=== PATIENT | female | born 1950 | race Hispanic/Latino ===

== ENCOUNTER 2016-07-26 13:11 | Observation (INO) | payer BC, MEDICARE ==
[2016-07-26 13:12] VITALS: BMI 21.5
--- NOTE | 2016-07-26 13:51 | ED PDOC ---
HPI: Altered Mental Status Time Seen by Provider: 07/26/16 13:29 Chief Complaint (Nursing): Altered Mental Status Chief Complaint (Provider): confusion History Per: Patient, Family (daughter) Additional Complaint(s): Patient presents to ED for evaluation of episode of confusion that she has earlier today. Patient states she woke up today, had breakfast and walked her dog. When she came home she saw a rat in her toilet and has to dispose of it. She states this is the second rat she has had in toilet in the past week. After she disposed of the rat she sat down on her couch and started to cry after which she went upstairs and told her daughter that she felt confused. Daughter who is at bedside said that patient did not remember walking her dog this morning and also did not remember that her other daughter who is [place] right now. As per daughter at bedside, yesterday patient did remember that her other daughter was away. As per daughter, patient also did not remember incident with rat. This episode occurred 1 hr ago and ambulance was called for patient to come here. Upon arrival patient states she now recalls what happened with the rat and feels less confused. She denies any associated facial or extremity numbness, no vision changes, headache, chest pain, shortness of breath or dyspnea on exertion. She has no history of similar symptoms in the past. Patient also mentions that she has a history of hypothyroidism but has been off of levothyroxine for the past 5 days. Daughter states the patient did not have any slurred speech, facial asymmetry or seizure- like activity at time that episode was occurring. Patient does admit that she has been under a great deal of stress lately and has been anxious. She denies any suicidal or homicidal ideation, denies any alcohol or drug use. NIHSS Stroke Scale - Date/Time Evaluation Performed Date Performed: 07/26/16 Time Performed: 13:50 When Was NIHSS Performed: Baseline - How Severe is the Stroke Level of Consciousness: 0=Alert LOC to Questions: 0=Both comments correct LOC to commands: 0=Obeys both correctly Best Gaze: 0=Normal Visual: 0=No visual loss Facial: 0=Normal Motor Arm - Left: 0=No drift Motor Arm - Right: 0=No drift Motor Leg - Left: 0=No drift Motor Leg - Right: 0=No drift Limb Ataxia: 0=Absent Sensory: 0=Normal Best Language: 0=No aphasia Dysarthia: 0=Normal articulation Extinction & Inattention (Neglect): 0=Normal, no object Score: 0 Past Medical History Reviewed: Historical Data Vital Signs: Last Vital Signs Temp 97.7 F 07/26/16 13:16 Pulse 78 07/26/16 13:16 Resp 19 07/26/16 13:16 BP 116/97 H 07/26/16 13:16 Pulse Ox 98 07/26/16 13:16 - Medical History PMH: Back Problems, Hypothyroidism - Family History Family History: States: No Known Family Hx - Living Arrangements Living Arrangements: With Family - Social History Current smoker - smoking cessation education provided: No Alcohol: None Drugs: Denies - Allergies Allergies/Adverse Reactions: Allergies Allergy/AdvReac Type Severity Reaction Status Date / Time No Known Allergies Allergy Verified 07/26/16 13:16 Review of Systems ROS Statement: Except As Marked, All Systems Reviewed And Found Negative Constitutional: Negative for: Fever, Chills, Weakness Cardiovascular: Negative for: Chest Pain, Palpitations Respiratory: Negative for: Cough Gastrointestinal: Negative for: Nausea, Vomiting Neurological: Positive for: Confusion, Altered Mental Status. Negative for: Weakness, Numbness, Incoordination, Change in Speech, Headache, Dizziness Physical Exam - Reviewed Nursing Documentation Reviewed: Yes Vital Signs Reviewed: Yes - Physical Exam Appears: Positive for: Well, Non-toxic, No Acute Distress Head Exam: Positive for: ATRAUMATIC, NORMAL INSPECTION Skin: Negative for: Rash Eye Exam: Positive for: Normal appearance, EOMI, PERRL. Negative for: Nystagmus Neck: Positive for: Normal, Painless ROM Cardiovascular/Chest: Positive for: Regular Rate, Rhythm Respiratory: Positive for: Normal Breath Sounds Gastrointestinal/Abdominal: Positive for: Normal Exam, Soft. Negative for: Tenderness Extremity: Positive for: Normal ROM. Negative for: Pedal Edema Neurologic/Psych: Positive for: Alert, tile layer helper II-XII (intact), Oriented, Mood/ Affect (appropriate), Gait (stead). Negative for: Motor/Sensory Deficits, Aphasia, Facial Droop - Laboratory Results Result Diagrams: 07/26/16 14:28 07/26/16 14:28 Urine dip results: Negative for: Leukocyte Esterase, Blood, Nitrate, Ketones, Glucose, Bilirubin, Protein - ECG Interpretation Of ECG: NSR 74 bpm, no acute finding, reviewed by PA and ED attending O2 Sat by Pulse Oximetry: 98 Pulse Ox Interpretation: Normal - Other Rad CT head X-Ray: Read By Radiologist X-Ray Interpretation: no acute finding bedside chest X-Ray: Read By Radiologist X-Ray Interpretation: see below Medical Decision Making Medical Decision Makin66 year old with confusion, TIA vs seizure Case was d/w Dr. Rich in detail Plan: CT head CBC CMP Trop TSH IV insertion supervisor lens generating CT is negative. CXR: FINDINGS: LUNGS: Radiopaque nodular densities seen in the peripheral aspect of the right lower lung. Under possible calcified granulomas in the right lung. Multilobular radiopaque density seen in the right hilum. PLEURA: No significant pleural effusion identified, no pneumothorax apparent.Biapical pleural parenchymal thickening noted. CARDIOVASCULAR: Normal. OSSEOUS STRUCTURES: The osseous structures demonstrate degenerative changes. VISUALIZED UPPER ABDOMEN: Normal. OTHER FINDINGS: None. IMPRESSION: Few radiopaque densities in the right lung. Comparison with prior imaging would be helpful. Call placed to [facility], Dr. العراقي, message was left, no call back received. Case was d/w medicine automobile accessories salesperson, Dr. Zacarias who will admit patient. Dr. Zacarias aware of above CXR findings, CT chest ordered. Case was also discussed with neurologist automobile accessories salesperson, Dr. King who will see patient while admitted. He states to order MRI with and without contrast. Patient is aware of and agrees with admission. Disposition - Clinical Impression Clinical Impression: Altered mental status - Patient ED Disposition Is Patient to be Admitted: Yes - Disposition Disposition Time: 17:33 Condition: FAIR - Pt Status Changed To: Hospital Disposition Of: Inpatient - Admit Certification Admit to Inpatient:: After my assessment, the patient will require hospitalization for at least two midnights. This is because of the severity of symptoms shown, intensity of services needed, and/or the medical risk in this patient being treated as an outpatient. - POA Present On Arrival: None Results - Lab Results Lab Results: 07/26/16 14:28 WBC 5.1 RBC 4.74 Hgb 13.8 Hct 42.7 MCV 90.0 MCH 29.2 MCHC 32.4 L RDW 13.7 Plt Count 224 MPV 9.1 Neut % (Auto) 49.0 L Lymph % (Auto) 36.9 [place] % (Auto) 7.5 Eos % (Auto) 5.8 H Baso % (Auto) 0.8 Neut # 2.5 Lymph # 1.9 [place] # 0.4 Eos # 0.3 Baso # 0.0 Sodium 147 Potassium 5.1 H Chloride 107 Carbon Dioxide 27 Anion Gap 18 BUN 18 H Creatinine 0.8 Est GFR ( Amer) > 60 Est GFR (Non-Af Amer) > 60 Random Glucose 102 Calcium 9.6 Total Bilirubin 0.6 AST 41 H ALT 41 Alkaline Phosphatase 91 Troponin I < 0.0120 Total Protein 7.6 Albumin 4.3 Globulin 3.3 Albumin/Globulin Ratio 1.3 TSH 3rd Generation 5.95 H
[2016-07-26 14:47] LABS: BASO % 0.8 % (0.0-2.0); EOS # 0.3 K/uL (0.0-0.7); EOS % 5.8 % (0.0-4.0); HEMATOCRIT 42.7 % (34.0-47.0); LYMPH # 1.9 K/uL (1.0-4.3); LYMPH % 36.9 % (20.0-40.0); MEAN CORPUSCULAR HEMOGLOBIN 29.2 pg (27.0-31.0); MEAN CORPUSCULAR HGB CONC 32.4 g/dL (33.0-37.0); MEAN PLATELET VOLUME 9.1 fl (7.2-11.7); MONO # 0.4 K/uL (0.0-0.8); MONO % 7.5 % (0.0-10.0); NEUT # 2.5 K/uL (1.8-7.0); NRBC % 0.1 % (0.0-0.0); RED CELL DISTRIBUTION WIDTH 13.7 % (11.5-14.5); WHITE BLOOD COUNT 5.1 K/uL (4.8-10.8)
[2016-07-26 14:55] LABS: ALB/GLOB RATIO 1.3 (1.0-2.1); ALKALINE PHOSPHATASE 91 U/L (38-126); ALT/SGPT 41 U/L (9-52); AST/SGOT 41 U/L (14-36); BILIRUBIN,TOTAL 0.6 mg/dl (0.2-1.3); BLOOD UREA NITROGEN 18 mg/dl (7-17); CALCIUM 9.6 mg/dL (8.4-10.2); CARBON DIOXIDE 27 mmol/L (22-30); CHLORIDE 107 mmol/L (98-107); GFR AFRICAN-AMERICAN > 60; GLUCOSE,RANDOM 102 mg/dL (65-105); POTASSIUM 5.1 MMOL/L (3.6-5.0); SODIUM 147 mmol/l (132-148); TOTAL PROTEIN 7.6 G/DL (6.3-8.2)
--- NOTE | 2016-07-26 14:57 | CT ---
PROCEDURE: CT HEAD WITHOUT CONTRAST. HISTORY: altered mental status COMPARISON: None available. TECHNIQUE: Axial computed tomography images were obtained through the head/brain without intravenous contrast. Radiation dose: Total exam DLP = 872.61 mGy-cm. This CT was performed using one or more of the following dose reduction techniques: Automated exposure control, adjustment of the mA and/or KV according to patient size, and/or use of iterative reconstruction technique. FINDINGS: HEMORRHAGE: No intracranial hemorrhage. BRAIN: No mass effect or edema. No CT evidence of acute territorial infarct. No atrophy or chronic microvascular ischemic changes. VENTRICLES: Unremarkable. No hydrocephalus. CALVARIUM: Unremarkable. PARANASAL SINUSES: Unremarkable as visualized. No significant inflammatory changes. MASTOID AIR CELLS: Unremarkable as visualized. No inflammatory changes. OTHER FINDINGS: None. IMPRESSION: No CT evidence of acute intracranial hemorrhage or acute territorial infarct. Acute infarction may be CT occult within first 24 hours. If a focal deficit persists, consider followup CT or MRI for further evaluation.
--- NOTE | 2016-07-26 15:04 | RAD ---
HISTORY: clearance COMPARISON: No prior. FINDINGS: LUNGS: Radiopaque nodular densities seen in the peripheral aspect of the right lower lung. Under possible calcified granulomas in the right lung. Multilobular radiopaque density seen in the right hilum. PLEURA: No significant pleural effusion identified, no pneumothorax apparent.Biapical pleural parenchymal thickening noted. CARDIOVASCULAR: Normal. OSSEOUS STRUCTURES: The osseous structures demonstrate degenerative changes. VISUALIZED UPPER ABDOMEN: Normal. OTHER FINDINGS: None. IMPRESSION: Few radiopaque densities in the right lung. Comparison with prior imaging would be helpful.
[2016-07-26 15:25] LABS: THYROID STIMULATING HORMONE 5.95 mIU/ML (0.46-4.68)
--- NOTE | 2016-07-26 17:19 | CARD ---
APPROVED REPORT EKG Measurement Heart [id number] [place] [id number] <Conclusion> Normal sinus rhythm Normal ECG
[2016-07-26] MEDS ORDERED: Sodium Chloride 0.9% 1,000 ML IV STA (17:33)
--- NOTE | 2016-07-26 20:15 | CP.PCM.HP ---
History of Present Illness - History of Present Illness History of Present Illness: CC:AMS Hisotory of present Illness: A 66yoF with H/O Hypothyroidism presented to ED for evaluation of episode of confusion that she has earlier today. Patient states she woke up today, had breakfast and walked her dog. When she came home she saw a rat in her toilet and has to dispose of it. She states this is the second rat she has had in toilet in the past week. After she disposed of the rat she sat down on her couch and started to cry after which she went upstairs and told her daughter that she felt confused. Daughter who is at bedside said that patient did not remember walking her dog this morning and also did not remember that her other daughter who is [place] right now. As per daughter at bedside, yesterday patient did remember that her other daughter was away. As per daughter, patient also did not remember incident with rat. This episode occurred 1 hr ago and ambulance was called for patient to come here. Upon arrival patient states she now recalls what happened with the rat and feels less confused. She denies any associated facial or extremity numbness, no vision changes, headache , chest pain, shortness of breath or dyspnea on exertion. She has no history of similar symptoms in the past. Patient also mentions that she has a history of hypothyroidism but has been off of Levothyroxine for the past 5 days. Daughter states the patient did not have any slurred speech, facial asymmetry or seizure- like activity at time that episode was occurring. Patient does admit that she has been under a great deal of stress lately and has been anxious. She denies any suicidal or homicidal ideation, denies any alcohol or drug use. Now she states she does not remember about 30minutes of gap as per the daughter at the bed side. Had a fall of 25stairs in the pats and was Hypotensive September of 2015 when she was just observed in the ER for 3hrs and discharged home. Present on Admission - Present on Admission Any Indicators Present on Admission: No History of DVT/PE: No History of Uncontrolled Diabetes: No Urinary Catheter: No Decubitus Ulcer Present: No Review of Systems - Review of Systems All systems: reviewed and no additional remarkable complaints except Past Patient History - Infectious Disease Hx of Infectious Diseases: None - Past Medical History & Family History Past Medical History?: Yes Past Family History: Reviewed and not pertinent - Past Social History Smoking Status: Never Smoked Alcohol: < 2 Drinks/Day Drugs: Denies - CARDIAC Hx Cardiac Disorders: Yes Hx Hypotension: Yes (Fall and Hypotension to SBP to 60, and visited the ER.) - PULMONARY Hx Respiratory Disorders: No - NEUROLOGICAL Hx Neurological Disorder: No - HEENT Hx HEENT Problems: No - RENAL Hx Chronic Kidney Disease: No - ENDOCRINE/METABOLIC Hx Hypothyroidism: Yes - HEMATOLOGICAL/ONCOLOGICAL Hx Blood Disorders: No - INTEGUMENTARY Hx Dermatological Problems: No - MUSCULOSKELETAL/RHEUMATOLOGICAL Hx Musculoskeletal Disorders: Yes Hx Back Pain: Yes - GASTROINTESTINAL Hx Gastrointestinal Disorders: No - GENITOURINARY/GYNECOLOGICAL Hx Genitourinary Disorders: No - PSYCHIATRIC Hx Psychophysiologic Disorder: No Hx Substance Use: No - SURGICAL HISTORY Hx Surgeries: Yes Other/Comment: 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 - ANESTHESIA Hx Anesthesia: Yes Hx Anesthesia Reactions: No Meds Allergies/Adverse Reactions: Allergies Allergy/AdvReac Type Severity Reaction Status Date / Time No Known Allergies Allergy Verified 07/26/16 13:16 Physical Exam - Constitutional Appears: Well, No Acute Distress - Head Exam Head Exam: ATRAUMATIC, NORMAL INSPECTION, NORMOCEPHALIC - Eye Exam Eye Exam: EOMI, Normal appearance, PERRL Pupil Exam: NORMAL ACCOMODATION, PERRL - ENT Exam ENT Exam: Mucous Membranes Moist, Normal Exam - Neck Exam Neck exam: Positive for: Full Rom, Normal Inspection - Respiratory Exam Respiratory Exam: Clear to Auscultation Bilateral, NORMAL BREATHING PATTERN - Cardiovascular Exam Cardiovascular Exam: REGULAR RHYTHM, +S1, +S2 - GI/Abdominal Exam GI & Abdominal Exam: Normal Bowel Sounds, Soft. absent: Tenderness - Extremities Exam Extremities exam: Positive for: full ROM, normal capillary refill, normal inspection. Negative for: tenderness - Back Exam Back exam: FULL ROM, NORMAL INSPECTION - Neurological Exam Neurological exam: Alert, CN II-XII Intact, Normal Gait, Oriented x3, Reflexes Normal - Psychiatric Exam Psychiatric exam: Normal Affect, Normal Mood - Skin Skin Exam: Dry, Intact, Normal Color, Warm Results - Vital Signs Recent Vital Signs: Last Vital Signs Temp 97.7 F 07/26/16 13:16 Pulse 91 H 07/26/16 18:30 Resp 16 07/26/16 18:30 BP 121/68 07/26/16 18:30 Pulse Ox 98 07/26/16 19:04 - Labs Result Diagrams: 07/27/16 06:00 07/27/16 06:00 Labs: Laboratory Results - last 24 hr 07/26/16 07/26/16 17:40 18:45 Potassium 3.9 Urine Opiates Screen Positive H Urine Methadone Screen Negative Ur Barbiturates Screen Negative Ur Phencyclidine Scrn Negative Ur Amphetamines Screen Negative U Benzodiazepines Scrn Negative U Oth Cocaine Metabols Negative U Cannabinoids Screen Negative - EKG Data EKG Interpreted by: Myself EKG shows normal: Sinus rhythm, [place], Intervals, QRS complexes, ST-T waves Rate: Normal - Imaging and Cardiology Chest x-ray Status: Report reviewed by me Additional comment: Few Radioopaque Opacities on the Right Lung. CT scan - head Status: Report reviewed by me Additional comment: without Contrast: No Acute finding Assessment & Plan (1) Altered mental status Assessment and Plan: H/O Fall and Hypotension UDOA- Opiate Positive R/O TIA/CVA Vs Seizure Vs ICSOL. Will do CT Head with Iv contrast (Cannot do MRI due to metals in the [place]) Neurology Consult Echo and Carotid Doppler Telemonitoring Echocardiogram EEG Status: Resolved Priority: Medium (2) Lung nodules Assessment and Plan: Will do CT Chest to characterize the nodules. Pulmonary consult Status: Acute (3) Tendonitis of knee, left Assessment and Plan: after a fall Will continue Pain medication PRN and PT/OT Status: Acute (4) Hypothyroidism Assessment and Plan: Continue Home medication Status: Chronic
[2016-07-27 00:21] LABS: CARCINOEMBRYONIC ANTIGEN 0.6 ng/mL (0-3.0)
[2016-07-27] MEDS: Sodium Chloride 0.45% 1,000 ML IV SCH ×3 (00:35→16:46)
[2016-07-27] MEDS: Levothyroxine 50 MCG TAB PO SCH (06:21)
[2016-07-27 08:08] LABS: BASO % 0.9 % (0.0-2.0); EOS # 0.3 K/uL (0.0-0.7); EOS % 7.7 % (0.0-4.0); LYMPH # 1.8 K/uL (1.0-4.3); LYMPH % 42.3 % (20.0-40.0); MEAN CELL VOLUME 89.3 fl (81.0-99.0); MEAN CORPUSCULAR HEMOGLOBIN 29.9 pg (27.0-31.0); MEAN CORPUSCULAR HGB CONC 33.5 g/dL (33.0-37.0); MONO # 0.4 K/uL (0.0-0.8); MONO % 9.3 % (0.0-10.0); NEUT # 1.7 K/uL (1.8-7.0); NEUT % 39.8 % (50.0-75.0); NRBC % 0.2 % (0.0-0.0); RED CELL DISTRIBUTION WIDTH 13.6 % (11.5-14.5); WHITE BLOOD COUNT 4.2 K/uL (4.8-10.8)
[2016-07-27 08:19] LABS: BLOOD UREA NITROGEN 14 mg/dl (7-17); CALCIUM 8.5 mg/dL (8.4-10.2); CARBON DIOXIDE 24 mmol/L (22-30); CHLORIDE 110 mmol/L (98-107); GFR AFRICAN-AMERICAN > 60; GLUCOSE,RANDOM 79 mg/dL (65-105); POTASSIUM 3.9 MMOL/L (3.6-5.0); SODIUM 143 mmol/l (132-148)
--- NOTE | 2016-07-27 08:39 | CT ---
PROCEDURE: CT Chest without contrast HISTORY: densities seen on CXR COMPARISON: None. TECHNIQUE: Contiguous axial images were obtained through the chest without intravenous contrast enhancement. Sagittal and coronal reconstructions were performed. Radiation dose (DLP): 498.66 mGy-cm. This CT was performed using one or more of the following dose reduction techniques: Automated exposure control, adjustment of the mA and/or KV according to patient size, and/or use of iterative reconstruction technique. FINDINGS: LUNGS: Calcified granuloma along the horizontal fissure. Additional calcified granuloma in the peripheral aspect of the right lower lobe. 5 millimeter nodule in the peripheral aspect of the left lower lobe (image 103, series 3.) 2 millimeter nodule in the peripheral aspect of the left lower lobe (image 19, series 3.) Mild bibasilar atelectatic changes noted. MEDIASTINUM: Unremarkable thoracic aorta. No aneurysm. Normal sized heart. Main pulmonary artery unremarkable. No vascular congestion. Scattered lymph nodes not significantly enlarged in the mediastinum. Calcified lymph nodes in the right hilum. Otherwise hilar lymph nodes are suboptimally evaluated due to lack of intravenous contrast. PLEURA: Biapical pleural parenchymal thickening noted. BONES: No fracture. No destructive lesion. UPPER ABDOMEN: Grossly unremarkable. OTHER FINDINGS: Punctate calcifications in the spleen. Otherwise the upper abdomen is grossly unremarkable. IMPRESSION: Few calcified granulomas in the right lung. Nodule in the left lung. Guidelines by the Fleischner society (radiology 2005; 237:395-400) suggests that in patients with low risk for lung cancer, nodules from 5 mm to 6 mm in diameter should have follow-up in approximately 12 months. In patients with high-risk, such as those were smokers, follow-up is recommended in 6 months. Patients with a known malignancy or risk for metastases should receive 3 month follow-up.
[2016-07-27] MEDS: Enoxaparin 40 mg Syringe SC SCH ×2 (10:15→10:42)
--- NOTE | 2016-07-27 10:41 | CP.PCM.CON ---
History of Present Illness - History of Present Illness History of Present Illness: Ms. Lehman is a 66-year-old woman with a past medical history of previous concussion after head injury, previous accident with jaw implant, symptomatic hypotension and pulmonary nodules who states that yesterday she had a traumatic event (found a rat in her toilet). She describes the event as being so shocking that it resulted in her crying. Afterward, she lost recollection of a specified time period. When her daughter informed her of the events that transpired throughout the day, she continued to repeat the same question after being told the answer on several occasions. She never was able to gain insight on what happened yesterday other than the event in question. However, today, she is lucid able to converse normally, has good recollection and does not have any complaints of speech difficulty, focal weakness, numbness, visual changes or difficulty with ambulation. Review of Systems - Review of Systems All systems: reviewed and no additional remarkable complaints except - Constitutional Constitutional: As Per HPI - EENT Eyes: As Per HPI - Cardiovascular Cardiovascular: As Per HPI - Gastrointestinal Gastrointestinal: As Per HPI - Neurological Neurological: As Per HPI - Psychiatric Psychiatric: As Per HPI Past Patient History - Infectious Disease Hx of Infectious Diseases: None - Past Medical History & Family History Past Medical History?: Yes - Past Social History Smoking Status: Never Smoked - CARDIAC Hx Cardiac Disorders: Yes Hx Hypotension: Yes - PULMONARY Hx Respiratory Disorders: No - NEUROLOGICAL Hx Neurological Disorder: No - HEENT Hx HEENT Problems: No - RENAL Hx Chronic Kidney Disease: No - ENDOCRINE/METABOLIC Hx Endocrine Disorders: Yes Hx Hypothyroidism: Yes - HEMATOLOGICAL/ONCOLOGICAL Hx Blood Disorders: No - INTEGUMENTARY Hx Dermatological Problems: No - MUSCULOSKELETAL/RHEUMATOLOGICAL Hx Musculoskeletal Disorders: Yes Hx Back Pain: Yes (back problems) Hx Falls: No - GASTROINTESTINAL Hx Gastrointestinal Disorders: No - GENITOURINARY/GYNECOLOGICAL Hx Genitourinary Disorders: No - PSYCHIATRIC Hx Psychophysiologic Disorder: No Hx Substance Use: No - SURGICAL HISTORY Hx Surgeries: Yes Other/Comment: 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 - ANESTHESIA Hx Anesthesia: Yes Hx Anesthesia Reactions: No Hx Malignant Hyperthermia: No Meds Allergies/Adverse Reactions: Allergies Allergy/AdvReac Type Severity Reaction Status Date / Time No Known Allergies Allergy Verified 07/26/16 13:16 - Medications Medications: Current Medications Enoxaparin Sodium (Lovenox) 40 mg SC DAILY [facility] PRN Reason: Protocol Last Admin: 07/27/16 10:15 Dose: 40 mg Famotidine (Pepcid) 20 mg IVP BID [facility] Last Admin: 07/27/16 10:14 Dose: 20 mg Sodium Chloride (Sodium Chloride 0.45%) 1,000 mls @ 100 mls/hr IV .Q10H [facility] Stop: 07/27/16 20:16 Last Admin: 07/27/16 06:21 Dose: 100 mls/hr Levothyroxine Sodium (Synthroid) 50 mcg PO DAILY@0630 [facility] Last Admin: 07/27/16 06:21 Dose: 50 mcg Physical Exam - Head Exam Head Exam: ATRAUMATIC, NORMAL INSPECTION, NORMOCEPHALIC - Eye Exam Eye Exam: EOMI, Normal appearance, PERRL - ENT Exam ENT Exam: Mucous Membranes Moist, Normal Exam - Neck Exam Neck exam: Positive for: Normal Inspection - Cardiovascular Exam Cardiovascular Exam: REGULAR RHYTHM - Neurological Exam Neurological exam: Alert, CN II-XII Intact, Normal Gait, Oriented x3, Reflexes Normal - Expanded Neurological Exam Expanded Patient oriented to: person, place, time Cranial nerves: EOM's Intact: Normal, Facial Sensation: Normal, Gag Reflex: Normal, Tongue Deviation: Normal Ataxia: No Cerebellar Function: Finger to Nose: Normal, Heel to Dyson: Normal, Romberg: Normal Upper motor neuron: Babinski Sign: Normal Sensory exam: Lower Extremity 2 Point Discrimination: Normal, Lower Extremity Light Touch: Normal, Lower Extremity Pin Prick: Normal, Lower Extremity Temperature: Normal, Upper Extremity 2 Point Discrimination: Normal, Upper Extremity Light Touch: Normal, Upper Extremity Pin Prick: Normal, Upper Extremity Temperature: Normal Neuro motor strength exam: Left Upper Extremity: 5, Right Upper Extremity: 5, Left Lower Extremity: 5, Right Lower Extremity: 5 DTR: Achilles Tendon Left: 2+, Achilles Tendon Right: 2+, Bicep Left: 2+, Bicep Right: 2+, Brachioradialis Left: 2+, Brachioradialis Right: 2+, Patellar Left: 2 +, Patellar Right: 2+, Tricep Left: 2+, Tricep Right: 2+ - Psychiatric Exam Psychiatric exam: Normal Affect, Normal Mood Additional comments: Recalls 3/3 objects immediately and after a delay, spells WORLD frontward and backward Results - Vital Signs Recent Vital Signs: Last Vital Signs Temp 97.9 F 07/27/16 09:00 Pulse 60 07/27/16 09:00 Resp 20 07/27/16 09:00 BP 116/69 07/27/16 09:00 Pulse Ox 98 07/27/16 09:00 - Labs Result Diagrams: 07/27/16 06:00 07/27/16 06:00 Labs: Laboratory Results - last 24 hr 07/26/16 07/26/16 07/26/16 17:40 18:45 23:20 WBC RBC Hgb Hct MCV MCH MCHC RDW Plt Count MPV Neut % (Auto) Lymph % (Auto) Norman % (Auto) Eos % (Auto) Baso % (Auto) Neut # Lymph # Norman # Eos # Baso # Sodium Potassium 3.9 Chloride Carbon Dioxide Anion Gap BUN Creatinine Est GFR ( Amer) Est GFR (Non-Af Amer) Random Glucose Calcium Troponin I < 0.0120 Alpha Fetoprotein 4.8 Carcinoembryonic Ag 0.6 Vitamin B12 385 Urine Opiates Screen Positive H Urine Methadone Screen Negative Ur Barbiturates Screen Negative Ur Phencyclidine Scrn Negative Ur Amphetamines Screen Negative U Benzodiazepines Scrn Negative U Oth Cocaine Metabols Negative U Cannabinoids Screen Negative 07/27/16 06:00 WBC 4.2 L RBC 4.03 Hgb 12.1 Hct 36.0 MCV 89.3 MCH 29.9 MCHC 33.5 RDW 13.6 Plt Count 188 MPV 9.0 Neut % (Auto) 39.8 L Lymph % (Auto) 42.3 H Norman % (Auto) 9.3 Eos % (Auto) 7.7 H Baso % (Auto) 0.9 Neut # 1.7 L Lymph # 1.8 Norman # 0.4 Eos # 0.3 Baso # 0.0 Sodium 143 Potassium 3.9 Chloride 110 H Carbon Dioxide 24 Anion Gap 13 BUN 14 Creatinine 0.7 Est GFR ( Amer) > 60 Est GFR (Non-Af Amer) > 60 Random Glucose 79 Calcium 8.5 Troponin I < 0.0120 Alpha Fetoprotein Carcinoembryonic Ag Vitamin B12 Urine Opiates Screen Urine Methadone Screen Ur Barbiturates Screen Ur Phencyclidine Scrn Ur Amphetamines Screen U Benzodiazepines Scrn U Oth Cocaine Metabols U Cannabinoids Screen - Imaging and Cardiology CT scan - head Status: Image reviewed by me, Report reviewed by me (No acute findings. ) Assessment & Plan (1) Altered mental status Assessment and Plan: Likely represents an episode of transient global amnesia. However, an epileptic spell cannot be ruled out since she does have a history of previous head injury. Currently, she is back to baseline and does not have any discernable neurologic deficits. An MRI of the brain would be ideal, but she states that she is unable to obtain one due to metal jaw implants. A CTA of the head and neck is recommended to rule out vertebrobasilar insufficiency. An EEG is also recommended to further evaluate for any possible epileptiform discharges. If the patient prefers, she may have this done as an outpatient and follow up with her neurologist. Status: Acute Priority: Medium
--- NOTE | 2016-07-27 11:25 | US ---
PROCEDURE: Duplex ultrasound of the carotid and vertebral arteries. HISTORY: AMS COMPARISON: None available. TECHNIQUE: Grayscale and duplex Doppler evaluation of the cervical carotid and vertebral arteries were performed. The common carotid, carotid bifurcations and cervical ICA and proximal ECA were evaluated. The vertebral arteries were evaluated for gross patency and direction. FINDINGS: RIGHT CAROTID ARTERIES: Common Carotid Artery: Patent with no significant focal plaque. Carotid Bifurcation: Minimal homogeneous plaque. Internal Carotid Artery:Patent with no significant focal plaque. Maximal flow velocity of 70.3 cm/s. External Carotid Artery (proximal branches): Minimal homogeneous plaque. ICA/CCA Ratio: 0.9 LEFT CAROTID ARTERIES: Common Carotid Artery: Patent with no significant focal plaque. Carotid Bifurcation: Minimal homogeneous plaque. Internal Carotid Artery:Minimal homogeneous plaque. Maximal flow velocity of 94.6 cm/s. External Carotid Artery (proximal branches): Normal homogeneous plaque. ICA/CCA Ratio: 1.1 VERTEBRAL ARTERIES: Right Vertebral Artery: Patent. Antegrade flow. Left Vertebral Artery: Patent. Antegrade flow. OTHER FINDINGS: None. IMPRESSION: No hemodynamically significant stenosis identified in the extracranial internal carotid arteries.
[2016-07-27 12:24] VITALS: RESP 18
--- NOTE | 2016-07-27 15:30 | CON ---
DATE: 07/27/2016 HISTORY OF PRESENT ILLNESS: The patient is a 66-year-old female who was referred for pulmonary evalu ation by Dr. Zacarias. She was admitted with altered mental status and found to have pulmonary nodules in the lung and referred for pulmonary evaluation by Dr. Zacarias. She is awake, alert and oriented, ap pears to be in no apparent distress at present. PAST MEDICAL HISTORY: She has a past medical history of hypothyroidism and indicates that about 30 y ears ago was told she has scars in her lung. FAMILY HISTORY: Nonrevealing. SOCIAL HISTORY: She does not smoke or drink. REVIEW OF SYSTEMS: Essentially unremarkable. PHYSICAL EXAMINATION: GENERAL: The patient is alert, oriented, appears to be in no apparent distress. VITAL SIGNS: Blood pressure 116/69, pulse of 60, respiratory rate 20, she is afebrile and O2 sat 98% on room air. SKIN: Shows fair turgor. HEENT: Pupils equal and react to light and accommodation. LUNGS: Clear. HEART: Regular. No murmurs or gallop. EXTREMITIES: Shows no edema or cyanosis. CENTRAL NERVOUS SYSTEM: Grossly intact. IMAGING: CT scan of the chest is remarkable for a few calcified granulomas in the right lung. Noted in the left lung, which is about 5 mm. IMPRESSION: Multiple granulomatous changes within the lung, calcified granulomas in the right lung, appears to be of no clinical consequence, but the left lower lobe 5 mm nodule has to be observed. Th e suggestion is to repeat CT scan of the chest in 3-6 months to evaluate left lower lobe nodule and t hen again in 12 months to continue followup. If the nodules stay the same size after 15 months of ev aluation, no further therapy is necessary. Will sign off the case and see again at your request. The case was discussed with the patient and her daughter. A copy of the CAT scan was given she. Skinny knox follow up with Dr. Kaila العراقي and advised of the same. Ronaldo Rosenbaum MD cc: [id number] TT: 07/27/2016 15:29:34 Confirmation # [id number] Dictation # [id number] dn
[2016-07-27 16:39] LABS: CORTISOL AM 3.5 ug/dL (4.46-22.7)
[2016-07-27] MEDS ORDERED: Sodium Chloride 0.9% 50 ML IV ONE (17:32)
[2016-07-27] MEDS ORDERED: Iodixanol 320 MG/ML 100 ML BOTTLE IV ONE (17:32)
--- NOTE | 2016-07-27 23:10 | CP.PCM.PN ---
Subjective - Date & Time of Evaluation Date of Evaluation: 07/27/16 Time of Evaluation: 11:00 - Subjective Subjective: Seen and Examined at the bed side. she states feel better and wants to go home. I have discussed all the pending work up for a possible etiology for the confusion and AMS, and agreed to stay. She denied using any pain medication with Opiod and even called her pharmacy and confirmed that she was not using any opiates. Denies any drug use. Denies CRENSHAW or confusion. Objective - Vital Signs/Intake and Output Vital Signs (last 24 hours): Temp Pulse Resp BP Pulse Ox 97.9 F 68 18 113/73 100 07/27/16 17:00 07/27/16 17:00 07/27/16 17:00 07/27/16 17:00 07/27/16 17:00 - Medications Medications: Current Medications Enoxaparin Sodium (Lovenox) 40 mg SC DAILY [facility] PRN Reason: Protocol Last Admin: 07/27/16 10:42 Dose: Not Given Famotidine (Pepcid) 20 mg IVP BID [facility] Last Admin: 07/27/16 16:46 Dose: Not Given Levothyroxine Sodium (Synthroid) 50 mcg PO DAILY@0630 [facility] Last Admin: 07/27/16 06:21 Dose: 50 mcg - Labs Labs: 07/27/16 06:00 07/27/16 06:00 - Constitutional Appears: Well, No Acute Distress - Head Exam Head Exam: ATRAUMATIC, NORMAL INSPECTION, NORMOCEPHALIC - Eye Exam Eye Exam: EOMI, Normal appearance, PERRL Pupil Exam: NORMAL ACCOMODATION, PERRL - ENT Exam ENT Exam: Mucous Membranes Moist, Normal Exam - Neck Exam Neck Exam: Full ROM, Normal Inspection. absent: Lymphadenopathy - Respiratory Exam Respiratory Exam: Clear to Ausculation Bilateral, NORMAL BREATHING PATTERN - Cardiovascular Exam Cardiovascular Exam: REGULAR RHYTHM, +S1, +S2. absent: Murmur - GI/Abdominal Exam GI & Abdominal Exam: Soft, Normal Bowel Sounds. absent: Tenderness - Extremities Exam Extremities Exam: Full ROM, Normal Capillary Refill, Normal Inspection. absent : Joint Swelling, Pedal Edema - Back Exam Back Exam: NORMAL INSPECTION - Neurological Exam Neurological Exam: Alert, Awake, CN II-XII Intact, Normal Gait, Oriented x3 - Psychiatric Exam Psychiatric exam: Normal Affect, Normal Mood - Skin Skin Exam: Dry, Intact, Normal Color, Warm - Additional Findings Additional findings: CT Chest= Glaucomatous lesions CT Head with contrast= No Acute Lesions Tumor Markers= Negative Assessment and Plan (1) Altered mental status Assessment & Plan: Possible Transient Global Amnesia Vs Intentional/Unintentional Opiate use R/O CArdiac and Neurological Etiology Follow Up Echo and EEG results Status: Resolved (2) Lung nodules Assessment & Plan: Garnuloma Follow Up CT as an outpatient and Informed the patient Pulmonary Input appreciated Status: Chronic (3) Tendonitis of knee, left Status: Acute (4) Hypothyroidism Status: Chronic
[2016-07-28] MEDS: Levothyroxine 50 MCG TAB PO SCH (05:48)
[2016-07-28] MEDS: Enoxaparin 40 mg Syringe SC SCH (09:02)
--- NOTE | 2016-07-28 10:39 | CT ---
PROCEDURE: CT HEAD WITH CONTRAST HISTORY: AMNESIA/AMS COMPARISON: Comparison made with CT scan brain 07/26/2016. TECHNIQUE: Axial computed tomography images were obtained through the neck and brain with intravenous contrast employing CTA protocol. Additional 2 dimensional sagittal and coronal reformats provided. . Contrast dose: 100 cc Visipaque 320 contrast material. Radiation dose: Total exam DLP = 377.21 mGy-cm. This CT exam was performed using one or more of the following dose reduction techniques: Automated exposure control, adjustment of the mA and/or kV according to patient size, and/or use of iterative reconstruction technique. FINDINGS: HEMORRHAGE: No acute parenchymal, subarachnoid or extra-axial hemorrhage. BRAIN: No mass, mass effect or edema. No abnormal intracranial enhancement. No atrophy or chronic microvascular ischemic changes. VENTRICLES: Unremarkable. No hydrocephalus. CALVARIUM: Unremarkable. PARANASAL SINUSES: Unremarkable as visualized. No significant inflammatory changes. MASTOID AIR CELLS: Unremarkable as visualized. No mastoid effusion. OTHER FINDINGS: Evaluation of the arterial vasculature on reveals widely patent anterior circulation. There is no evidence of occlusion nor significant stenosis of the visualized common carotid arteries, carotid bifurcations or internal carotid arteries. The PE trace, cavernous and supraclinoid segments of the carotid arteries also patent despite some minor calcified atherosclerotic plaque seen along the cavernous carotid segments. The A1 and M1 segments are patent. The distal at anterior cerebral and middle cerebral arteries are also patent and relatively symmetric. There is asymmetry of the vertebral arteries, right-sided which is smaller in caliber than the left felt to represent an anatomic variation. . No evidence of occlusion or significant atherosclerotic disease. Basilar artery and posterior cerebral arteries are also patent. No evidence of large aneurysm nor vascular mild formation. Mild multilevel degenerative spondylosis of the cervical spine. Mild biapical pleural thickening IMPRESSION: No acute intracranial hemorrhage. No acute intracranial hemorrhage. The anterior circulations widely patent. Mild asymmetry of the vertebral arteries right-sided which smaller in caliber than the left however this is felt to represent a anatomic variation. No evidence of large aneurysm nor vascular mild formation.
--- NOTE | 2016-07-28 10:41 | CT ---
PROCEDURE: CT HEAD WITH CONTRAST HISTORY: AMNESIA/AMS COMPARISON: Comparison made with CT scan brain 07/26/2016. TECHNIQUE: Axial computed tomography images were obtained through the neck and brain with intravenous contrast employing CTA protocol. Additional 2 dimensional sagittal and coronal reformats provided. . Contrast dose: 100 cc Visipaque 320 contrast material. Radiation dose: Total exam DLP = 377.21 mGy-cm. This CT exam was performed using one or more of the following dose reduction techniques: Automated exposure control, adjustment of the mA and/or kV according to patient size, and/or use of iterative reconstruction technique. FINDINGS: HEMORRHAGE: No acute parenchymal, subarachnoid or extra-axial hemorrhage. BRAIN: No mass, mass effect or edema. No abnormal intracranial enhancement. No atrophy or chronic microvascular ischemic changes. VENTRICLES: Unremarkable. No hydrocephalus. CALVARIUM: Unremarkable. PARANASAL SINUSES: Unremarkable as visualized. No significant inflammatory changes. MASTOID AIR CELLS: Unremarkable as visualized. No mastoid effusion. OTHER FINDINGS: Evaluation of the arterial vasculature on reveals widely patent anterior circulation. There is no evidence of occlusion nor significant stenosis of the visualized common carotid arteries, carotid bifurcations or internal carotid arteries. The PE trace, cavernous and supraclinoid segments of the carotid arteries also patent despite some minor calcified atherosclerotic plaque seen along the cavernous carotid segments. The A1 and M1 segments are patent. The distal at anterior cerebral and middle cerebral arteries are also patent and relatively symmetric. There is asymmetry of the vertebral arteries, right-sided which is smaller in caliber than the left felt to represent an anatomic variation. . No evidence of occlusion or significant atherosclerotic disease. Basilar artery and posterior cerebral arteries are also patent. No evidence of large aneurysm nor vascular mild formation. Mild multilevel degenerative spondylosis of the cervical spine Mild biapical pleural thickening. . IMPRESSION: Normal contrast enhanced CT of the head. No acute intracranial hemorrhage. The anterior circulations widely patent. Mild asymmetry of the vertebral arteries right-sided which smaller in caliber than the left however this is felt to represent a anatomic variation. No evidence of large aneurysm nor vascular mild formation.
[2016-07-28 12:08] VITALS: BP 146/87; PULSE 76; TEMP 97.2; O2SAT 97
--- NOTE | 2016-07-28 14:59 | CARD ---
APPROVED REPORT EXAM: Two-dimensional and M-mode echocardiogram with Doppler and color Doppler. Other Information Quality : GoodRhythm : NSR INDICATION ICD: AMS 2D DIMENSIONS IVSd0.60 (0.7-1.1cm)LVDd4.33 (3.9-5.9cm) LVOT Diameter1.63 (1.8-2.4cm)PWd0.65 (0.7-1.1cm) IVSs0.70 (0.8-1.2cm)LVDs4.42 (2.5-4.0cm) FS (%) 1.9 %PWs0.70 (0.8-1.2cm) M-Mode DIMENSIONS Left Atrium (MM)2.71 (2.5-4.0cm)IVSd0.91 (0.7-1.1cm) Aortic Root2.79 (2.2-3.7cm)LVDd3.91 (4.0-5.6cm) Aortic Cusp Exc.1.94 (1.5-2.0cm)PWd0.88 (0.7-1.1cm) IVSs1.32 cmFS (%) 29 % LVDs2.76 (2.0-3.8cm)PWs1.21 cm Mitral Valve MV E Xjxmitsk66.0cm/sMV DECEL [id number] A Pqaruvqo57.1cm/s MV DMS89ifO/A ratio1.2MVA (PHT)3.52cm2 TDI Lateral E' Peak V10.43cm/sMedial E' Peak V8.47cm/sE/Lateral E'8.6 E/Medial E'10.6 Tricuspid Valve TR Peak Iasxbpkv881oa/sRAP [id number] Peak Gr.20mmHg [id number] LEFT VENTRICLE The left ventricle is normal size. There is normal left ventricular wall thickness. The left ventricular function is normal. The left ventricular ejection fraction is - 60%. There is normal LV segmental wall motion. The left ventricular diastolic function is normal. No left ventricle thrombus noted on this study. There is no ventricular septal defect visualized. There is no left ventricular aneurysm. There is no mass noted in the left ventricle. RIGHT VENTRICLE The right ventricle is normal size. There is normal right ventricular wall thickness. The right ventricular systolic function is normal. ATRIA The left atrium size is normal. There is no thrombus suspected in the left atrium. The right atrium size is normal. Color and spectral doppler studies show a small flow jet from the LA to the RA in the mid interatrial septum that has the appearance of a patent foramen ovale. The flow velocity is less than 1 meter/second. AORTIC VALVE The aortic valve is normal in structure and function. No aortic regurgitation is present. There is no aortic valvular stenosis. MITRAL VALVE The mitral valve is normal in structure and function. There is no evidence of mitral valve prolapse. There is no mitral valve stenosis. Mitral regurgitation is mild. TRICUSPID VALVE The tricuspid valve is normal in structure and function. There is mild tricuspid regurgitation. Right ventricular systolic pressure is estimated at 29 mmHg. There is no tricuspid valve prolapse or vegetation. There is no tricuspid valve stenosis. PULMONIC VALVE The pulmonic valve is not well visualized. There is no pulmonic valvular regurgitation. GREAT VESSELS The aortic root is normal in size. The IVC is normal in size and collapses >50% with inspiration. PERICARDIAL EFFUSION The pericardium appears normal. There is no pleural effusion. <Conclusion> The left ventricle is normal in size and wall thickness. The left ventricular function is normal. The left ventricular ejection fraction is - 60%. The left atrium, right ventricle and right atrium are normal in size. The mitral, aortic and tricuspid valves are normal. There is mild mitral regurgitation and mild tricuspid regurgitation. Color and spectral doppler studies show a small flow jet from the LA to the RA in the mid interatrial septum that has the appearance of a patent foramen ovale. The flow velocity is less than 1 meter/second. Please correlate clinically. Note: This echocardiogram report was called in to the floor.
--- NOTE | 2016-07-28 15:51 | CP.PCM.PN ---
Subjective - Date & Time of Evaluation Date of Evaluation: 07/28/16 Time of Evaluation: 12:15 - Subjective Subjective: Mrs. Lehman was seen and examined today at bedside. She had no difficulty remembering me and the conversation that we had yesterday. There were no acute events overnight. She had no complaints. Objective - Vital Signs/Intake and Output Vital Signs (last 24 hours): Temp Pulse Resp BP Pulse Ox 97.2 F L 76 18 146/87 97 07/28/16 13:00 07/28/16 13:00 07/28/16 13:00 07/28/16 13:00 07/28/16 13:00 - Medications Medications: Current Medications Enoxaparin Sodium (Lovenox) 40 mg SC DAILY [facility] PRN Reason: Protocol Last Admin: 07/28/16 09:02 Dose: Not Given Famotidine (Pepcid) 20 mg IVP BID [facility] Last Admin: 07/28/16 09:02 Dose: Not Given Levothyroxine Sodium (Synthroid) 50 mcg PO DAILY@0630 [facility] Last Admin: 07/28/16 05:48 Dose: Not Given - Labs Labs: 07/27/16 06:00 07/27/16 06:00 - Head Exam Head Exam: ATRAUMATIC, NORMAL INSPECTION, NORMOCEPHALIC - Eye Exam Pupil Exam: NORMAL ACCOMODATION, PERRL - Neurological Exam Neurological Exam: Alert, Awake, CN II-XII Intact, Normal Gait, Oriented x3 Neuro motor strength exam: Left Upper Extremity: 5, Right Upper Extremity: 5, Left Lower Extremity: 5, Right Lower Extremity: 5 - Psychiatric Exam Psychiatric exam: Normal Affect, Normal Mood Assessment and Plan (1) Altered mental status Assessment & Plan: At this point, it is likely that the patient had an episode of transient global amnesia. The CTA of the head/neck was normal and other tests were normal as well. The EEG result is pending, but seizure is unlikely given the history. Status: Resolved
--- NOTE | 2016-07-28 23:42 | CP.PCM.DIS ---
Provider - Provider Date of Admission: 07/26/16 17:25 Attending physician: Fransisco Zacarias MD Time Spent in preparation of Discharge (in minutes): 30 Diagnosis - Discharge Diagnosis (1) Altered mental status Status: Resolved Priority: Medium Comment: Transient Global Amnesia. Opiate Positive (2) Lung nodules Status: Chronic (3) Tendonitis of knee, left Status: Acute (4) Hypothyroidism Status: Chronic Hospital Course - Lab Results Lab Results: Most Recent Lab Values WBC 4.2 K/uL (4.8-10.8) L 07/27/16 06:00 RBC 4.03 Mil/uL (3.80-5.20) 07/27/16 06:00 Hgb 12.1 g/dL (12.0-16.0) 07/27/16 06:00 Hct 36.0 % (34.0-47.0) 07/27/16 06:00 MCV 89.3 fl (81.0-99.0) 07/27/16 06:00 MCH 29.9 pg (27.0-31.0) 07/27/16 06:00 MCHC 33.5 g/dL (33.0-37.0) 07/27/16 06:00 RDW 13.6 % (11.5-14.5) 07/27/16 06:00 Plt Count 188 K/uL (130-400) 07/27/16 06:00 MPV 9.0 fl (7.2-11.7) 07/27/16 06:00 Neut % (Auto) 39.8 % (50.0-75.0) L 07/27/16 06:00 Lymph % (Auto) 42.3 % (20.0-40.0) H 07/27/16 06:00 Gilliam % (Auto) 9.3 % (0.0-10.0) 07/27/16 06:00 Eos % (Auto) 7.7 % (0.0-4.0) H 07/27/16 06:00 Baso % (Auto) 0.9 % (0.0-2.0) 07/27/16 06:00 Neut # 1.7 K/uL (1.8-7.0) L 07/27/16 06:00 Lymph # 1.8 K/uL (1.0-4.3) 07/27/16 06:00 Gilliam # 0.4 K/uL (0.0-0.8) 07/27/16 06:00 Eos # 0.3 K/uL (0.0-0.7) 07/27/16 06:00 Baso # 0.0 K/uL (0.0-0.2) 07/27/16 06:00 Sodium 143 mmol/l (132-148) 07/27/16 06:00 Potassium 3.9 MMOL/L (3.6-5.0) 07/27/16 06:00 Chloride 110 mmol/L (98-107) H 07/27/16 06:00 Carbon Dioxide 24 mmol/L (22-30) 07/27/16 06:00 Anion Gap 13 (10-20) 07/27/16 06:00 BUN 14 mg/dl (7-17) 07/27/16 06:00 Creatinine 0.7 mg/dL (0.7-1.2) 07/27/16 06:00 Est GFR ( Amer) > 60 07/27/16 06:00 Est GFR (Non-Af Amer) > 60 07/27/16 06:00 POC Glucose (mg/dL) 124 mg/dL (65-110) H 07/26/16 13:31 Random Glucose 79 mg/dL (65-105) 07/27/16 06:00 Calcium 8.5 mg/dL (8.4-10.2) 07/27/16 06:00 Total Bilirubin 0.6 mg/dl (0.2-1.3) 07/26/16 14:28 AST 41 U/L (14-36) H 07/26/16 14:28 ALT 41 U/L (9-52) 07/26/16 14:28 Alkaline Phosphatase 91 U/L (38-126) 07/26/16 14:28 Troponin I < 0.0120 ng/mL (0.00-0.120) 07/27/16 12:00 Total Protein 7.6 G/DL (6.3-8.2) 07/26/16 14:28 Albumin 4.3 g/dL (3.5-5.0) 07/26/16 14:28 Globulin 3.3 gm/dL (2.2-3.9) 07/26/16 14:28 Albumin/Globulin Ratio 1.3 (1.0-2.1) 07/26/16 14:28 Alpha Fetoprotein 4.8 IU/mL (0.0-7.22) 07/26/16 23:20 Carcinoembryonic Ag 0.6 ng/mL (0-3.0) 07/26/16 23:20 CA 19-9 Antigen 5.0 U/mL (0-37) 07/26/16 23:20 CA 125 Antigen < 5.5 U/mL (0-35) 07/26/16 23:20 Vitamin B12 385 pg/mL (239-931) 07/26/16 23:20 TSH 3rd Generation 5.95 mIU/ML (0.46-4.68) H 07/26/16 14:28 Cortisol AM Sample 3.5 ug/dL (4.46-22.7) L 07/26/16 23:20 Plasma Cortisol PM 3.46 ug/dL (1.7-14.1) 07/26/16 23:20 Urine Opiates Screen Positive (NEGATIVE) H 07/26/16 17:40 Urine Methadone Screen Negative (NEGATIVE) 07/26/16 17:40 Ur Barbiturates Screen Negative (NEGATIVE) 07/26/16 17:40 Ur Phencyclidine Scrn Negative (NEGATIVE) 07/26/16 17:40 Ur Amphetamines Screen Negative (NEGATIVE) 07/26/16 17:40 U Benzodiazepines Scrn Negative (NEGATIVE) 07/26/16 17:40 U Oth Cocaine Metabols Negative (NEGATIVE) 07/26/16 17:40 U Cannabinoids Screen Negative (NEGATIVE) 07/26/16 17:40 RPR Nonreactive (NONREACTIVE) 07/26/16 23:20 Discharge Exam - Head Exam Head Exam: ATRAUMATIC, NORMAL INSPECTION, NORMOCEPHALIC - Eye Exam Eye Exam: EOMI, Normal appearance, PERRL Pupil Exam: NORMAL ACCOMODATION, PERRL - GI/Abdominal Exam GI & Abdominal Exam: Normal Bowel Sounds - Rectal Exam Rectal Exam: NORMAL INSPECTION - Exam Exam: Circumcision, NORMAL INSPECTION External exam: NORMAL EXTERNAL EXAM Speculum exam: NORMAL SPECULUM EXAM Bimanual exam: NORMAL BIMANUAL EXAM - Neurological Exam Neurological exam: Alert, CN II-XII Intact, Normal Gait, Oriented x3, Reflexes Normal - Psychiatric Exam Psychiatric exam: Normal Affect, Normal Mood - Skin Skin Exam: Dry, Intact, Normal Color, Warm Discharge Plan - Follow Up Plan Condition: FAIR Disposition: HOME/ ROUTINE Instructions: Altered Mental Status (GEN) Additional Instructions: Activity as tolerated, follow-up w/ Primary Doctor , to call for appt.Regular diet.
--- NOTE | 2016-07-30 11:54 | PQF GENQUE ---
Dr. Zacarias pt was admitted with altered mental status. After study if known what is the source or cause of pt's altered mental status? This form is a permanent part of the medical record Clarification of your documentation is requested to better reflect the severity of illness and intensity of treatment of your patient. Indicators present [X] Specify: Altered Mental Status due to Transient Global Amnesia Vs Substance use. [] Specify: [] [] Specify: [] [] Specify: [] Location in the medical record that reflects the above clinical findings: [] Treatment Provided: [X] IV Hydration, Telemonitoring, and Work Up for Recurrent Fall PHYSICIAN'S RESPONSE Based on your medical judgment of the clinical indicators outlined above please clarify the following: [X] Practitioner response [] If unable to determine, please check the box, sign and date. Present On Admission (POA) Indicator: [X] Present at the time of admission [] Not present at the time of admission [] Clinically Undetermined In responding to this query, please exercise your independent professional judgment. The fact that a question is asked does not imply that any particular answer is desired or expected. Thank you for your clarification on this documentation. 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
--- NOTE | 2016-08-07 14:26 | EEG ---
DATE: 07/28/2016 The record is obtained for history of altered mental status. The patient has a history of amnesia. The record was obtained while awake and drowsy. The record was symmetrically equal on both sides wit h velocity of 9 cycles per second. The waves are fairly formed, fairly organized with posterior dist ribution, moderate in amplitude, reactive to eye opening by attenuation. There are no abnormal disch arges. No spike, no polyspike, no sharp wave, no focal slowing or paroxysmal discharge. The record did not show any changes with photic stimulation. The hyperventilation was omitted. There are perio ds of drowsiness during which attenuation and slowing of the record were seen and theta waves were se en. The record did not show any changes with photic stimulation. The hyperventilation was omitted. There were some eye movement artifact, electrode artifact, and muscle movement artifacts. SUMMARY: In sum, this is a normal awake and drowsy EEG. Clinical correlation is recommended. Kim Flores MD cc: [id number] TT: 08/07/2016 08:39:09 Confirmation # [id number] Dictation # [id number] [email or web address]
== END 2016-07-28 15:30 | disposition home or self-care (01) ==
LOC: H.ER 13:11 → H.ERHOLD 17:25 → INTOOBSV 17:25 → H.TEL 20:55
PROVIDERS: ADMIT Internal Medicine; ATTEND Internal Medicine
DX: R41.82 Altered mental status, unspecified (principal); F11.90 Opioid use, unspecified, uncomplicated; J84.10 Pulmonary fibrosis, unspecified; E03.9 Hypothyroidism, unspecified; R91.8 Other nonspecific abnormal finding of lung field; M76.9 Unspecified enthesopathy, lower limb, excluding foot
CPT/HCPCS: 36415; 70450; 70460; 70498; 71010; 71250; 80048; 80053; 82105; 82378; 82533; 82607; 82948; 84132; 84443; 84484; 85025; 86301; 86304; 86592; 93005; 93306; 93880; 95816; 99284; G0378; G0480; J7030; J7040; Q9967